=== PATIENT | female | born 1960 | race Two or more races ===

== ENCOUNTER 2017-11-16 16:16 | Outpatient (CLI) | payer OTHER ==
--- NOTE | 2017-11-16 16:47 | RAD ---
TWO VIEWS OF THE CHEST: 11/16/17 COMPARISON: None. HISTORY: Cough and dyspnea. FINDINGS: Two views of the chest shows a cardiomediastinal silhouette which is upper limits of normal in size. There is no evidence of consolidation, mass, or pleural effusion. Degenerative changes are seen in th e spine. IMPRESSION: No evidence of acute cardiopulmonary disease. POS: [facility]
== END 2017-11-16 16:17 | disposition home or self-care (01) ==
LOC: RAD 16:16
PROVIDERS: ATTEND Internal Medicine Cardiovascular Disease
DX: R05 Cough (principal)
CPT/HCPCS: 71046